=== PATIENT | male | born 1945 | race Caucasian/White ===

== ENCOUNTER 2020-12-23 19:19 | Emergency (ER) | payer MEDICARE, BC, OTHER, SELFPAY ==
--- NOTE | ~2020-12-23 | XR_ITS ---
EXAMINATION: XR chest 2V DATE: 12/23/2020 19:48 INDICATION: Pinning of a left lateral chest wall wound at the site of a recent cardiac pacemaker plac ement. Assess pacemaker leads. TECHNIQUE: frontal view of the chest was obtained. COMPARISON: None FINDINGS: There are a pair of cardiac pacemaker/AICD leads, both with the distal tips in the region of the apex of the right ventricle. One of the leads appears connected to a pacemaker projects over the lateral left lower lung. There is a discontinuous and to a second pacemaker lead which projects over the pace maker. Instantly noted is a likely ventriculoperitoneal shunt projecting over the base of the right n sharon, the right chest and right upper quadrant of the abdomen. Elevation of the left hemidiaphragm. Mild linear discoid atelectasis/scarring at the right lower lung zone. No other airspace opacities, pulmonary edema, pleural effusion or pneumothorax. Heart and medi astinal silhouette is normal. Coronary artery stent. IMPRESSION: 1. 2 cardiac pacemaker/AICD leads with distal tips in the region of the apex of the right ventricle, one of which appears continuous with the pacemaker and the second lead which appears discontinuous. 2. Elevation of left hemidiaphragm and mild right basilar atelectasis/scarring. Reviewed, dictated and finalized at location A. IMPRESSION: 1. 2 cardiac pacemaker/AICD leads with distal tips in the region of the apex of the right ventricle, one of which appears continuous with the pacemaker and th e second lead which appears discontinuous. 2. Elevation of left hemidiaphragm and mild right basilar atelectasis/scarring.
[2020-12-23 19:20] VITALS: BP 143/71; PULSE 96; RESP 17; TEMP 36.6; O2SAT 97
--- NOTE | 2020-12-23 19:29 | ED.GENADULT ---
HPI - General Adult General Chief complaint: Medical Clearance Stated complaint: Wants pacer wire checked Time Seen by Provider: 12/23/20 19:30 Source: patient Mode of arrival: ambulatory Limitations: no limitations History of Present Illness HPI narrative: 75-year-old male presents to the [facility] with . reports that this morning at 11 AM he started to slip out of a chair and was bear hugged by a caregiver so he would not fall. is concerned because he was bear hugged and a small open area occurred to a surgical site, left chest that has been intermittently bleeding. 6 weeks ago, had a pacer placed. Minor amount of bleeding noted. reports bleeding is worse when he raises his left arm. No signs of infection. Had a Band-Aid over the site. is also concerned about the pacer placement. Has had multiple complications. Sees Dr. Delgado in [place]. Went to the emergency room first waited for a little while and was told there was an 8-hour wait so they came here for an evaluation. is just requesting an x-ray for pacer placement, wire placement and to have his wound checked. Patient denies any chest pain shortness of breath. Patient is wheelchair-bound. Related Data Home Medications Medication Instructions Recorded Confirmed albuterol sulfate [Proventil HFA] 2 inh INHALATION DIRECTED 12/23/20 12/23/20 aspirin 12/23/20 aspirin 81 mg PO DAILY 12/23/20 12/23/20 atenolol 50 mg PO DAILY 12/23/20 12/23/20 carbidopa 25 mg PO DAILY 12/23/20 12/23/20 cholecalciferol (vitamin D3) 25 mcg PO DAILY 12/23/20 12/23/20 [Vitamin D3] cyanocobalamin (vitamin B-12) 1,000 mcg PO DAILY 12/23/20 12/23/20 [Vitamin B-12] doxycycline hyclate 100 mg PO BID 12/23/20 12/23/20 ezetimibe [Zetia] 10 mg PO DAILY 12/23/20 12/23/20 folic acid 1 mg PO DAILY 12/23/20 12/23/20 furosemide 20 mg PO DAILY 12/23/20 12/23/20 gabapentin 300 mg PO DIRECTED 12/23/20 12/23/20 insulin aspart U-100 [Novolog 1 unit SUBCUT DIRECTED 12/23/20 12/23/20 Flexpen U-100 Insulin] insulin glargine [Lantus U-100 See Rx Instructions .ROUTE .COMPLEX 12/23/20 12/23/20 Insulin] metformin 1,000 mg PO DIRECTED 12/23/20 12/23/20 mirabegron [Myrbetriq] 25 mg PO DIRECTED 12/23/20 12/23/20 pantoprazole 20 mg PO DAILY 12/23/20 12/23/20 ramipril 10 mg PO DAILY 12/23/20 12/23/20 rivastigmine tartrate 4.5 mg PO DAILY 12/23/20 12/23/20 sertraline 100 mg PO DAILY 12/23/20 12/23/20 tamsulosin 0.4 mg PO DAILY 12/23/20 12/23/20 tiotropium bromide [Spiriva 2.5 mcg INHALATION DIRECTED 12/23/20 12/23/20 Respimat] Allergies Allergy/AdvReac Type Severity Reaction Status Date / Time No Known Allergies Allergy Verified 12/23/20 19:53 Review of Systems Review of Systems: All systems reviewed & are unremarkable except as noted in HPI and below Constitutional: Constitutional: Reports no additional constitutional complaints, Denies chills and Denies fever(s) Eyes: Eyes: Reports no additional eye complaints ENT: Reports system reviewed and no additional complaints, except as documented Cardiovascular: Cardiovascular: Reports no additional cardiovascular complaints, Denies chest pain, Denies rapid heart rate and Denies slow heart rate Respiratory: Respiratory: Reports no additional respiratory complaints, Denies cough and Denies dyspnea Gastrointestinal: Gastrointestinal: Reports no additional gastrointestinal complaints Musculoskeletal: Musculoskeletal: Reports no additional musculoskeletal complaints Integumentary/Breasts: Skin/Breast: Reports as per HPI Neurologic: Reports system reviewed and no additional complaints, except as documented Psychiatric: Psychiatric: Reports no additional psychiatric complaints Allergic/Immunologic: Allergic/Immunologic: Reports no additional allergic/immunologic complaints [facility] Past Medical History Medical History (Updated 12/24/20 @ 18:56 by Eula Velasco) CHF (congestive heart failure) Depression Kendra
--- NOTE | 2020-12-23 19:52 | ECG_ITS ---
Measurements Intervals [place] Rate: 97 P: 62 [place]: 166 QRS: 96 QRSD: 105 T: 49 QT: 342 QTc: 436 Interpretive Statements SINUS RHYTHM RIGHT AXIS DEVIATION MINIMAL Q WAVES- INFERIOR LEADS BORDERLINE ECG Electronically Signed On 12-24-2020 8:04:38 CDT by Yamil Wyatt D.O.
== END 2020-12-23 20:20 | disposition home or self-care (01) ==
PROVIDERS: Emergency Provider Nurse Practitioner
DX: T81.31XA Disruption of external operation (surgical) wound, not elsewhere classified, initial encounter (principal); Z95.810 Presence of automatic (implantable) cardiac defibrillator; I11.0 Hypertensive heart disease with heart failure; I50.9 Heart failure, unspecified; F32.9 Major depressive disorder, single episode, unspecified; E11.9 Type 2 diabetes mellitus without complications; G20 Parkinson's disease
CPT/HCPCS: 71046; 93005; 99203; G0463